=== PATIENT | female | born 1955 | race Caucasian/White ===

== ENCOUNTER 2019-02-07 10:34 | Emergency (ER) | payer OTHER ==
[2019-02-07 11:04] VITALS: BP 113/73
--- NOTE | 2019-02-07 11:25 | UC ---
Skin Complaint HPI - HPI Summary HPI Summary: Pt presents with c/o itchy rash that began after "pulling weeds and gardening" "a few days ago". Pt states rash is more itchy at night, the rash on face feels "warm and flushed". Unsure of what she may have come into contact with. - History of Current Complaint Chief Complaint: [facility] Time Seen by Provider: 02/07/19 11:12 Stated Complaint: SKIN CONCERN Hx Obtained From: Patient ?: No Onset/Duration: Gradual Onset, Lasting Days, Still Present, Worse Since - onset Skin Exposure Onset/Duration: Days Ago Timing: Constant Onset Severity: Mild Current Severity: Moderate Pain Intensity: 0 Location: Diffuse, Face, Other - bilateral arms Character: Pruritus, Redness, Raised, Painful Aggravating Factor(s): Touch Alleviating Factor(s): Unknown Associated Signs & Symptoms: Positive: Rash Related History: Possible Reaction to: Environmental Exposure - Allergy/Home Medications Allergies/Adverse Reactions: Allergies Allergy/AdvReac Type Severity Reaction Status Date / Time bacitracin Allergy skin Verified 02/07/19 10:57 [From Neosporin irritation ([id number])] neomycin Allergy skin Verified 02/07/19 10:57 [From Neosporin irritation ([id number])] polymyxin B Allergy skin Verified 02/07/19 10:57 [From Neosporin irritation ([id number])] Sulfa (Sulfonamide Allergy Rash Verified 02/07/19 10:57 Antibiotics) tramadol Allergy Altered Verified 02/07/19 10:57 Mental Status Home Medications: Home Medications oxyCODONE/Acetam5/325MG PREPAK [Percocet 5/325 TAB*] 1 tab QID PRN 02/07/19 [ History Confirmed 02/07/19] PMH/Surg Hx/FS Hx/Imm Hx Previously Healthy: Yes Cardiovascular History: Cardiac Disease, Hypertension - Surgical History Surgical History: Yes Surgery Procedure, Year, and Place: GALL BLADDER, TUBAL LIGATION. VARICOSE VEINS. Gastric sleeve - Family History Known Family History: Positive: Cardiac Disease - Social History Occupation: Disabled Lives: With Family Alcohol Use: None Substance Use Type: None Smoking Status (MU): Never Smoked Tobacco Have You Smoked in the Last Year: No - Immunization History Most Recent Influenza Vaccination: 2014 Most Recent Tetanus Shot: UP TO DATE Most Recent Pneumonia Vaccination: HAS HAD Vaccination Up to Date: Yes Review of Systems All Other Systems Reviewed And Are Negative: Yes Constitutional: Positive: Negative Skin: Positive: Rash - erythematous, flushed and papular on face; bilateral arms raised, with gina tracts. Eyes: Positive: Negative ENT: Positive: Negative Respiratory: Positive: Negative Cardiovascular: Positive: Negative Gastrointestinal: Positive: Negative Genitourinary: Positive: Negative Motor: Positive: Negative Neurovascular: Positive: Negative Musculoskeletal: Positive: Negative Neurological: Positive: Negative Psychological: Positive: Negative Is Patient Immunocompromised?: No Physical Exam Triage Information Reviewed: Yes Appearance: Well-Appearing Vital Signs: Initial Vital Signs Temp 98.2 F 02/07/19 10:59 Pulse 66 02/07/19 10:59 Resp 16 02/07/19 10:59 BP 113/73 02/07/19 10:59 Pulse Ox 100 02/07/19 10:59 Vital Signs Reviewed: Yes Eye Exam: Normal ENT Exam: Normal Dental Exam: Normal Neck exam: Normal Respiratory: Positive: No respiratory distress Musculoskeletal Exam: Normal Neurological Exam: Normal Skin: Positive: Rashes - erythematous, flushed and papular on face acros cheeks and bridge of nose; bilateral arms raised, with gina tracts. Course/Dx - Differential Diagnoses - Skin Complaint Differential Diagnoses: Cellulitis, Contact Dermatitis, Scabies - Diagnoses Provider Diagnosis: Rash and nonspecific skin eruption Discharge - Sign-Out/Discharge Documenting (check all that apply): Patient Departure All imaging exams completed and their final reports reviewed: No Studies - Discharge Plan Condition: Stable Disposition: HOME Prescriptions: Metronidazole/Skin Cleanser 23 [Rosadan 0.75% Gel Kit] 1 each TP Q12H #1 kit.cl.gel Permethrin 5% CREAM* 1 applic TOPICAL SEE INSTRUCTIONS #1 tube predniSONE TAB* [Deltasone 10 MG TAB*] 30 mg PO DAILY #12 tab Patient Education Materials: Antihistamine (By mouth), Contact Dermatitis (ED) , Acute Rash (ED) Referrals: Vivien Pena PA [Primary Care Provider] - As Soon As Possible - Billing Disposition and Condition Condition: STABLE Disposition: Home
== END 2019-02-07 11:40 | disposition home or self-care (01) ==
LOC: UCCORT 10:34
DX: R21 Rash and other nonspecific skin eruption (principal); I11.9 Hypertensive heart disease without heart failure
CPT/HCPCS: 99212; G0463

== ENCOUNTER 2021-02-09 08:06 | Inpatient (IN) ==
[~2021-02-09 08:06] MED LIST: Buffered Lidocaine 1% SYRIN 1 ml INTRADERM ONE; Lactated Ringers 1000 ml BAG 1,000 ML IV SCH
[2021-02-09] MEDS ORDERED: fentaNYL 100 mcg/2 ml 50 MCG/ML VIAL ONE (08:44)
[2021-02-09] MEDS ORDERED: Midazolam 5 mg/5 ml VIAL 1 mg/ml 5 ml VIAL (5 mg) ONE (08:44)
[2021-02-09] MEDS ORDERED: Bupivacaine 0.5% SDV PF 30ML VIAL ONE (08:46)
[2021-02-09] MEDS ORDERED: Lidocaine 2% w/ EPI 1:200,000 MPF 20 ML SDV VIAL ONE (08:47)
[2021-02-09] MEDS ORDERED: ceFAZolin 2 GM in NS PREMIX 2 GM/100 ML BAG IVPB ONE (08:59)
[2021-02-09] MEDS ORDERED: fentaNYL 100 mcg/2 ml 50 MCG/ML VIAL IV PRN (11:45)
[2021-02-09] MEDS ORDERED: oxyCODONE/Acetamin 5/325 mg TAB PO PRN (11:45)
[2021-02-09] MEDS ORDERED: Ondansetron 4 mg VIAL 2 MG/ML 2 ml VIAL IV PRN ×2 (11:45→14:10)
[2021-02-09] MEDS ORDERED: DiMENhydriNATE IV 50 mg/ml 1 ml VIAL IV PUSH PRN (11:45)
[2021-02-09] MEDS ORDERED: Metoclopramide 5 MG/ML VIAL (10 mg) IV PRN (11:45)
[2021-02-09] MEDS ORDERED: Dexamethasone IV 4 MG/ML VIAL 1 ml VIAL ONE (12:53)
[2021-02-09] MEDS ORDERED: Ondansetron 4 mg VIAL 2 MG/ML 2 ml VIAL ONE (12:53)
[2021-02-09] MEDS ORDERED: Propofol 10 MG/ML 20 ML BTL ONE (13:28)
[2021-02-09] MEDS ORDERED: Ondansetron ODT 4 mg TAB 4 MG TAB PO PRN (14:10)
[2021-02-09] MEDS ORDERED: Magnesium Hydroxide LIQ 30 ML UDC PO PRN (14:10)
[2021-02-09] MEDS ORDERED: diPHENhydraMINE 25 mg TAB PO PRN (14:10)
[2021-02-09] MEDS ORDERED: Lactulose 30 ml UDC PO PRN (14:10)
[2021-02-09] MEDS ORDERED: diPHENhydraMINE IV 50 MG/ML 1 ml VIAL (BENADRYL) IV PRN (14:10)
[2021-02-09] MEDS: Lactated Ringers 1000 ml BAG 1,000 ML IV SCH (15:48)
[2021-02-09] MEDS: Magnesium Hydroxide LIQ 30 ML UDC PO SCH (20:55)
[2021-02-09] MEDS: ceFAZolin 1 GM ADVAN 1 GM in NS 0.9% 50 ML 50 ML IVPB SCH (21:01)
[2021-02-10] MEDS: ceFAZolin 1 GM ADVAN 1 GM in NS 0.9% 50 ML 50 ML IVPB SCH ×3 (02:34→19:58)
[2021-02-10 06:20] LABS: Mean Platelet Volume 7.1 fL (7.4-10.4); Platelet Count 189 10^3/uL (150-450)
[2021-02-10 06:36] LABS: Calcium 8.3 mg/dL (8.6-10.3); EGFR African American 103.3 (>60); EGFR Non-African American 85.4 (>60); Potassium 3.8 mmol/L (3.5-5.0)
[2021-02-10] MEDS: Morphine 2 MG/ML SYRINGE IV PRN ×2 (08:10→12:03)
[2021-02-10] MEDS: Cholecalciferol (VIT D3) 1,000 unit TAB PO SCH (08:21)
[2021-02-10] MEDS: Vitamin THERAPEUTIC TAB PO SCH (08:22)
[2021-02-10] MEDS: Magnesium Hydroxide LIQ 30 ML UDC PO SCH ×2 (08:23→20:05)
[2021-02-10] MEDS: Enoxaparin 40 MG/0.4 ML SYR SUBCUT SCH (12:04)
[2021-02-11] MEDS: Morphine 2 MG/ML SYRINGE IV PRN (03:12)
[2021-02-11] MEDS: ceFAZolin 1 GM ADVAN 1 GM in NS 0.9% 50 ML 50 ML IVPB SCH ×3 (03:12→19:58)
[2021-02-11 05:32] LABS: Mean Platelet Volume 7.5 fL (7.4-10.4); Platelet Count 172 10^3/uL (150-450)
[2021-02-11] MEDS: Cholecalciferol (VIT D3) 1,000 unit TAB PO SCH (10:13)
[2021-02-11] MEDS: Vitamin THERAPEUTIC TAB PO SCH (10:14)
[2021-02-11] MEDS: Magnesium Hydroxide LIQ 30 ML UDC PO SCH ×2 (10:15→19:58)
[2021-02-11] MEDS: Enoxaparin 40 MG/0.4 ML SYR SUBCUT SCH (12:43)
[2021-02-12] MEDS: ceFAZolin 1 GM ADVAN 1 GM in NS 0.9% 50 ML 50 ML IVPB SCH ×3 (03:36→19:56)
[2021-02-12 05:18] LABS: Mean Platelet Volume 7.5 fL (7.4-10.4); Platelet Count 169 10^3/uL (150-450)
[2021-02-12] MEDS: Magnesium Hydroxide LIQ 30 ML UDC PO SCH ×2 (07:24→20:07)
[2021-02-12] MEDS: Cholecalciferol (VIT D3) 1,000 unit TAB PO SCH (07:24)
[2021-02-12] MEDS: Vitamin THERAPEUTIC TAB PO SCH (07:24)
[2021-02-12] MEDS ORDERED: Bupivacaine 0.5% SDV PF 30ML VIAL ONE (07:27)
[2021-02-12] MEDS ORDERED: Lidocaine 1% VIAL 10 MG/ML VIAL ONE (07:27)
[2021-02-12] MEDS ORDERED: Propofol 10 MG/ML 20 ML BTL ONE (08:04)
[2021-02-12] MEDS ORDERED: Midazolam 2 mg/2 ml VIAL 1 mg/ml 2 ml VIAL (2 mg) ONE (08:11)
[2021-02-12] MEDS ORDERED: fentaNYL 100 mcg/2 ml 50 MCG/ML VIAL ONE (08:14)
[2021-02-12] MEDS ORDERED: Dexamethasone IV 4 MG/ML VIAL 1 ml VIAL ONE (08:50)
[2021-02-12] MEDS ORDERED: Ondansetron 4 mg VIAL 2 MG/ML 2 ml VIAL ONE (08:50)
[2021-02-12] MEDS ORDERED: fentaNYL 100 mcg/2 ml 50 MCG/ML VIAL IV PRN (08:52)
[2021-02-12] MEDS ORDERED: Ondansetron 4 mg VIAL 2 MG/ML 2 ml VIAL IV PRN (08:52)
[2021-02-12] MEDS ORDERED: Dexamethasone IV 4 MG/ML VIAL 1 ml VIAL IV SLOW PU ONE (08:53)
[2021-02-12] MEDS ORDERED: Buffered Lidocaine 1% SYRIN 1 ml INTRADERM ONE (08:53)
[2021-02-12] MEDS ORDERED: Lactated Ringers 1000 ml BAG 1,000 ML IV SCH (09:00)
[2021-02-12] MEDS: Lactated Ringers 1000 ml BAG 1,000 ML IV SCH (10:23)
[2021-02-12] MEDS: Enoxaparin 40 MG/0.4 ML SYR SUBCUT SCH (12:56)
[2021-02-12] MEDS: Morphine 2 MG/ML SYRINGE IV PRN (17:06)
[2021-02-13] MEDS: ceFAZolin 1 GM ADVAN 1 GM in NS 0.9% 50 ML 50 ML IVPB SCH ×3 (03:35→20:51)
[2021-02-13] MEDS: Lactated Ringers 1000 ml BAG 1,000 ML IV SCH (03:37)
[2021-02-13 06:33] LABS: Platelet Count 200 10^3/uL (150-450)
[2021-02-13] MEDS: Magnesium Hydroxide LIQ 30 ML UDC PO SCH ×2 (08:38→20:54)
[2021-02-13] MEDS: Vitamin THERAPEUTIC TAB PO SCH (08:40)
[2021-02-13] MEDS: Cholecalciferol (VIT D3) 1,000 unit TAB PO SCH (08:40)
[2021-02-13] MEDS ORDERED: Lactated Ringers 500 ml BAG 500 ML IV ONE (09:23)
[2021-02-13] MEDS: Enoxaparin 40 MG/0.4 ML SYR SUBCUT SCH (12:10)
[2021-02-13 12:15] LABS: ABS Monocytes 0.3 10^3/ul (0-0.8); ABS Neutrophils 3.6 10^3/ul (1.5-7.7); Eosinophil % 0.3 %; Hematocrit 26 % (35-47); Hemoglobin 9.2 g/dL (12.0-16.0); Lymphocyte % 20.5 %; Mean Corpuscular HGB Conc 35 g/dL (31-36); Mean Corpuscular Hemoglobin 32 pg (27-31); Mean Corpuscular Volume 91 fL (80-97); Nucleated Red Blood Cells % 0.1; Red Blood Count 2.89 10^6 /uL (3.70-4.87); Red Cell Distribution Width 15 % (10-15); White Blood Count 4.9 10^3/uL (3.5-10.8)
[2021-02-14] MEDS: ceFAZolin 1 GM ADVAN 1 GM in NS 0.9% 50 ML 50 ML IVPB SCH ×2 (03:25→11:57)
[2021-02-14 06:01] LABS: Mean Platelet Volume 7.3 fL (7.4-10.4); Platelet Count 186 10^3/uL (150-450)
[2021-02-14 07:27] LABS: Hematocrit 25 % (35-47); Hemoglobin 8.3 g/dL (12.0-16.0)
[2021-02-14] MEDS: Cholecalciferol (VIT D3) 1,000 unit TAB PO SCH (08:31)
[2021-02-14] MEDS: Vitamin THERAPEUTIC TAB PO SCH (08:32)
[2021-02-14] MEDS: Magnesium Hydroxide LIQ 30 ML UDC PO SCH (08:32)
[2021-02-14] MEDS: Enoxaparin 40 MG/0.4 ML SYR SUBCUT SCH (11:57)
[2021-02-14 15:34] VITALS: BP 101/65
== END 2021-02-14 18:15 | disposition home or self-care (01) | DRG 494 ==
LOC: OR 08:06 → SSU 15:54
PROVIDERS: ADMIT Orthopaedic Surgery; ATTEND Orthopaedic Surgery

== ENCOUNTER 2022-04-28 16:22 | Inpatient (IN) ==
[2022-04-28 16:51] LABS: Venous Bicarbonate HCO3 14.8 mmol/L (24-28)
[2022-04-28 16:53] LABS: ABS Eosinophils 0.1 10^3/ul (0-0.6); ABS Lymphocytes 1.8 10^3/ul (1.0-4.8); ABS Monocytes 0.4 10^3/ul (0-0.8); ABS Neutrophils 2.2 10^3/ul (1.5-7.7); Eosinophil % 1.3 %; Hematocrit 37 % (35-47); Hemoglobin 12.1 g/dL (12.0-16.0); Lymphocyte % 40.9 %; Mean Corpuscular HGB Conc 32 g/dL (31-36); Mean Corpuscular Hemoglobin 27 pg (27-31); Mean Corpuscular Volume 85 fL (80-97); Nucleated Red Blood Cells % 0.2; Red Blood Count 4.43 10^6 /uL (3.70-4.87); Red Cell Distribution Width 17 % (10-15); White Blood Count 4.4 10^3/uL (3.5-10.8)
[2022-04-28] MEDS ORDERED: Lactated Ringers 1000 ml BAG 1,000 ML IV ONE (17:12)
[2022-04-28 17:13] LABS: High Sens Troponin Baseline 4 pg/mL (<15)
[2022-04-28 17:15] LABS: ALT 9 U/L (7-52); Acetaminophen < 15 mcg/mL; Albumin 4.1 g/dL (3.2-5.2); Albumin/Globulin Ratio 1.5 (1-3); Alcohol, S < 13 mg/dL (<13); Alkaline Phosphatase 71 U/L (35-149); Blood Urea Nitrogen 13 mg/dL (6-24); C Reactive Protein 2.85 mg/L (<8.01); CO2 Carbon Dioxide 24 mmol/L (22-32); Calcium 8.6 mg/dL (8.6-10.3); Chloride 99 mmol/L (101-111); Creatine Kinase 59 U/L (10-223); Globulin 2.7 g/dL (2-4); Glucose 112 mg/dL (70-100); Magnesium 1.9 mg/dL (1.9-2.7); Salicylate < 2.50 mg/dL (<30); Sodium 135 mmol/L (135-145); Total Protein 6.8 g/dL (6.4-8.9); eGFR CKD-EPI 93.7 (>60)
[2022-04-28 17:16] LABS: Anion Gap 12 mmol/L (2-11)
[2022-04-28 17:17] LABS: INR 1.01 (0.89-1.11)
[2022-04-28 17:35] LABS: Mean Platelet Volume 7.6 fL (7.4-10.4); Platelet Count 203 10^3/uL (150-450)
[2022-04-28 18:25] LABS: High Sensitivity Troponin 1 Hr 7 pg/mL (<15)
[2022-04-28 21:00] LABS: Urine Appearance Cloudy; Urine Bilirubin Negative (Negative); Urine Blood Negative (Negative); Urine Color Yellow; Urine Glucose Negative (Negative); Urine Ketones Negative (Negative); Urine Nitrite Negative (Negative); Urine Protein Negative (Negative); Urine Urobilinogen Negative (Negative)
[2022-04-28 21:12] LABS: Potassium 3.5 mmol/L (3.5-5.0)
[2022-04-28] MEDS ORDERED: Metoprolol Tartrate 5 mg VIAL 5 ml VIAL (1 mg/ml) IV PRN (23:44)
[2022-04-29] MEDS ORDERED: Potassium Chlor 20 meq TAB.ER PO ONE ×2 (00:20→07:16)
[2022-04-29 00:21] LABS: TSH Ultra Thyroid Stim Horm 2.21 mcIU/mL (0.34-5.60)
[2022-04-29] MEDS: Enoxaparin 40 MG/0.4 ML SYR SUBCUT SCH ×2 (00:54→20:16)
[2022-04-29 02:47] LABS: Urine Benzodiazepine Screen Presumptive Positive (None Detect); Urine Cannabinoids Screen None Detected (None Detect); Urine Opiates Screen None Detected (None Detect)
[2022-04-29 05:47] LABS: Hematocrit 34 % (35-47); Hemoglobin 11.1 g/dL (12.0-16.0); Mean Corpuscular HGB Conc 33 g/dL (31-36); Mean Corpuscular Hemoglobin 27 pg (27-31); Mean Corpuscular Volume 83 fL (80-97); Mean Platelet Volume 6.9 fL (7.4-10.4); Platelet Count 204 10^3/uL (150-450); Red Blood Count 4.07 10^6 /uL (3.70-4.87); Red Cell Distribution Width 16 % (10-15); White Blood Count 4.5 10^3/uL (3.5-10.8)
[2022-04-29 06:26] LABS: Calcium 8.6 mg/dL (8.6-10.3); Magnesium 1.8 mg/dL (1.9-2.7); Phosphorus 3.9 mg/dL (2.5-5.0); Potassium 3.5 mmol/L (3.5-5.0); eGFR CKD-EPI 99.7 (>60)
[2022-04-29] MEDS ORDERED: Magnesium Sulfate 2 gm BAG 2 GM/50 ML BAG IVPB ONE (07:15)
[2022-04-29] MEDS: Cholecalciferol (VIT D3) 1,000 unit TAB PO SCH (08:07)
[2022-04-30 05:28] LABS: Hematocrit 40 % (35-47); Hemoglobin 12.8 g/dL (12.0-16.0); Mean Corpuscular HGB Conc 32 g/dL (31-36); Mean Corpuscular Hemoglobin 28 pg (27-31); Mean Corpuscular Volume 86 fL (80-97); Red Blood Count 4.65 10^6 /uL (3.70-4.87); Red Cell Distribution Width 16 % (10-15); White Blood Count 3.7 10^3/uL (3.5-10.8)
[2022-04-30 05:51] LABS: Magnesium 2.3 mg/dL (1.9-2.7); Phosphorus 3.8 mg/dL (2.5-5.0); Potassium 4.3 mmol/L (3.5-5.0); eGFR CKD-EPI 97.4 (>60)
[2022-04-30 07:07] LABS: ABS Eosinophils 0.1 10^3/ul (0-0.6); ABS Lymphocytes 1.7 10^3/ul (1.0-4.8); ABS Monocytes 0.3 10^3/ul (0-0.8); ABS Neutrophils 1.6 10^3/ul (1.5-7.7); Eosinophil % 1.5 %; Lymphocyte % 46.7 %; Platelet Count Platelets clumped. 10^3/uL (150-450)
[2022-04-30] MEDS: Cholecalciferol (VIT D3) 1,000 unit TAB PO SCH (07:57)
[2022-04-30 18:34] LABS: Mean Platelet Volume 7.5 fL (7.4-10.4); Platelet Count 229 10^3/uL (150-450)
[2022-04-30] MEDS: Enoxaparin 40 MG/0.4 ML SYR SUBCUT SCH (20:34)
[2022-05-01 04:56] LABS: Hematocrit 35 % (35-47); Hemoglobin 11.3 g/dL (12.0-16.0); Mean Corpuscular HGB Conc 32 g/dL (31-36); Mean Corpuscular Hemoglobin 27 pg (27-31); Mean Corpuscular Volume 84 fL (80-97); Mean Platelet Volume 6.9 fL (7.4-10.4); Platelet Count 181 10^3/uL (150-450); Red Blood Count 4.19 10^6 /uL (3.70-4.87); Red Cell Distribution Width 17 % (10-15); White Blood Count 3.4 10^3/uL (3.5-10.8)
[2022-05-01 05:12] LABS: Calcium 8.5 mg/dL (8.6-10.3); Magnesium 1.9 mg/dL (1.9-2.7)
[2022-05-01 05:17] LABS: eGFR CKD-EPI 102.9 (>60)
[2022-05-01] MEDS: Cholecalciferol (VIT D3) 1,000 unit TAB PO SCH (08:11)
[2022-05-01 08:27] VITALS: BP 144/102
== END 2022-05-01 11:00 | disposition home or self-care (01) | DRG 101 ==
LOC: ED 16:22 → EDHOLD 21:08 → ICU 23:35
PROVIDERS: ADMIT Internal Medicine; ATTEND Internal Medicine